=== PATIENT | male | born 1990 | race Two or more races ===

== ENCOUNTER 2016-07-17 11:42 | Emergency (ER) | payer MEDICAID ==
[2016-07-17 12:11] VITALS: BP 116/82; PULSE 64; RESP 18; TEMP 98.6; O2SAT 96
--- NOTE | 2016-07-17 12:31 | UCPHY ---
H & P Time Seen by Provider: 07/17/16 12:11 Patient Type: Established HPI/ROS: This patient has a sore throat over the past 24 hours with subjective fevers. He reports associated odynophagia. He reports the intensity is moderate. He notes no exacerbating or alleviating factors other than the odynophagia. ROS: No high fevers or chills. HEENT: He reports no nasal congestion. No ear pain. Pulmonary: No cough GI: No vomiting skin: No rash. 7 point ROS is otherwise negative. Smoking Status: Current every day smoker Physical Exam: Physical Exam Vital signs are normal. General: No acute distress HEENT: Nose: Clear oropharynx: Mild exudates bilaterally with mild erythema to the tonsils. He has foul smelling breath that reminiscent of strep nose: Clear ears: External canals TMs clear bilaterally. Eyes: Pupils equal and react to light. Extraocular motions are intact. Lungs: Clear to auscultation bilaterally. No respiratory distress. Cardiac: Regular rate and rhythm with no murmur gallop or rub Skin: No rash or pallor. Neuro: Alert with normal mental status Strep versus viral pharyngitis Constitutional: Initial Vital Signs Temperature (C) 37.0 C 07/17/16 11:50 Heart Rate 64 07/17/16 11:50 Respiratory Rate 18 07/17/16 11:50 Blood Pressure 116/82 H 07/17/16 11:50 O2 Sat (%) 96 07/17/16 11:50 O2 Delivery Mode Room Air Allergies/Adverse Reactions: No Known Allergies Allergy (Verified 07/17/16 12:08) Home Medications: Medication Instructions Recorded Abilify 30mg 04/27/14 Prozac 20 MG (RX) 04/27/14 Penicillin V Potassium [Penicillin 500 mg PO BID #20 07/17/16 VK] Medical Decision Making ED Course/Re-evaluation: This patient's rapid strep is negative however his exudates and smell of his breath concerning for potential strep. Will start him on penicillin awaiting the DNA strep test tomorrow. Departure - Departure Disposition: Home, Routine, Self-Care Clinical Impression: Tonsillitis with exudate Instructions: Tonsillitis (ED) Additional Instructions: Diagnosis: Exudative tonsillitis Plan: Penicillin antibiotic Ibuprofen and Tylenol No work tomorrow You can call the clinic tomorrow to check on the 2nd strep test. The # [phone] Referrals: NONE *PRIMARY CARE P,. [Primary Care Provider] - As per Instructions Stand Alone Forms: Work Excuse Prescriptions: Penicillin V Potassium [Penicillin VK] 500 mg PO BID #20 - PQRS PQRS Measurement: NA
== END 2016-07-17 12:37 | disposition home or self-care (01) ==
LOC: CED 11:42
DX: J03.90 Acute tonsillitis, unspecified (principal)
CPT/HCPCS: 87880-PO; 99214-PO; G0463-PO

== ENCOUNTER 2016-12-28 13:06 | Emergency (ER) | payer OTHER ==
--- NOTE | 2016-12-28 13:19 | CPEKG ---
Heart Rate: 66 RR Interval: 909 P-R Interval: 160 QRSD Interval: 100 QT Interval: 384 QTC Interval: 403 P Raritan: 14 QRS Raritan: 54 T Wave Raritan: 15 EKG Severity - NORMAL ECG - EKG Impression: SINUS RHYTHM Electronically Signed By: Alvin Sharma 28-Dec-2016 16:21:56
[2016-12-28 13:23] VITALS: RESP 16; TEMP 98.2; O2SAT 96
--- NOTE | 2016-12-28 13:57 | EDPHY ---
H & P Stated Complaint: chest pain, started wednesday night Time Seen by Provider: 12/28/16 13:38 HPI/ROS: CHIEF COMPLAINT: pain in the left chest HISTORY OF PRESENT ILLNESS: [medically stable 26-year-old male reports awakening from sleep with a sense of heartburn. This all happened some 48 hours ago. He had a quick get out of the tent and vomit. He was out camping and some kind of rodeo show in [place] with his family. Shortly thereafter, he started noting pain in the left chest. It starts in the lower supervisory forehead area and radiates around to the left chest wall. It is somewhat worse when he moves and twists but not continuously. Pain itself is continuous. He has never had pain like this before. He does not use experience reflux He has a negative risk factors for pulmonary embolus as well as no family history for pulmonary embolus. His perc rule score is 0. As to coronary disease his grandmother at a young age on the toilet however we do not know whether that was acute coronary syndrome or sudden . As best see knows his mother and father are well although mother has had problems related to uterine cancer No diabetes or hypertension or high cholesterol. He is a little overweight approaching 29% BMI which he attributes to taking Abilify for last 4 years for underlying psychiatric condition. He did stop this some 4 months ago and does not feel untoward. He does smoke] P: Worse somewhat with movement, able to lay on that side Q: Sharp R: Radiating to left breast S: Moderate T: Almost 36 hours now REVIEW OF SYSTEMS: Constitutional: No fever, no chills. No diaphoresis ENT: No sore throat. Cardiovascular: See above Respiratory: No cough, shortness of breath, or wheezing. Gastrointestinal: No nausea vomiting or diarrhea. No abdominal pain. Genitourinary: No hematuria or frequency. Musculoskeletal: No back pain. Skin: No rashes. Neurological: No headache. 10 point ROS otherwise negative Source: Patient Exam Limitations: No limitations - Medical/Surgical History Hx Asthma: No Hx Chronic Respiratory Disease: No Hx Diabetes: No Hx Cardiac Disease: No Hx Renal Disease: No Hx Cirrhosis: No Hx Alcoholism: No Hx HIV/AIDS: No Hx Splenectomy or Spleen Trauma: No Other PMH: Asthma as a child, bipolar, depression. diverticulitis. PCP none. Tetanus UTD. heart murmur. gerd - Family History Significant Family History: Other (Grandmother of sudden , see above) - Social History Smoking Status: Current every day smoker Alcohol Use: None Drug Use: None - Physical Exam Exam: General Appearance: Alert, no distress. Afebrile. Normal phonation. No respiratory distress. Calm Eyes: Pupils equal and round no pallor or injection. No icterus ENT, Mouth: Mucous membranes moist. Pharynx without erythema or exudate. TM Clear. Neck: No adenopathy. Supple. No JVD. Trachea in midline. Respiratory: There are no retractions, lungs are clear to auscultation. He is tender to the left lateral chest wall. Also worse when he turns to the left. Finally when he attempts to lift his left leg straight leg raising fashion when supine it worsens Cardiovascular: Regular rate and rhythm. No murmur rub Abdomen: Soft and nontender, no masses, bowel sounds normal. Neurological: Ox3. No motor weakness. Sensation intact. Gait nl. Skin: Warm and dry, no rashes. Musculoskeletal: No joint swelling. Extremities: No edema. Homans sign negative. No cords. Psychiatric: Normal affect. There is no agitation] Constitutional: Initial Vital Signs Temperature (C) 36.8 C 12/28/16 13:20 Heart Rate 85 12/28/16 13:20 Respiratory Rate 16 12/28/16 13:20 Blood Pressure 128/66 H 12/28/16 13:20 O2 Sat (%) 96 12/28/16 13:20 O2 Delivery Mode Room Air Allergies/Adverse Reactions: No Known Allergies Allergy (Verified 12/28/16 13:23) Home Medications: Medication Instructions Recorded Abilify 30mg 04/27/14 Prozac 20 MG (RX) 04/27/14 Medical Decision Making - Diagnostics EKG Interpretation: EKG: Normal sinus rhythm. Normal ST-T. No ischemia. Impression normal EKG Imaging Results: Imaging Impressions Chest X-Ray 12/28/16 13:32 Impression: No acute pulmonary disease. Films reviewed by me on the [place] ED Course/Re-evaluation: His initial EKG was negative. Subsequent troponin was negative. His heart score is 1. Perc Score 0. As the predominance of the exam and clinical findings support a rib strain from his violent emesis as he self describes, he will be released with outpatient treatment to consist of [id number] medications Differential Diagnosis: Differential diagnosis includes but is not limited to the following: ACS, myocardial infarction, pneumothorax, pleurisy, pulmonary embolus, aortic dissection, anxiety, muscle strain. - Data Points Laboratory Results: 12/28/16 14:20 Troponin I < 0.012 ng/mL ng/mL (0-0.034) Departure - Departure Disposition: Home, Routine, Self-Care Clinical Impression: Intercostal muscle strain Qualifiers: Encounter type: initial encounter Qualified Code(s): S29.011A - Strain of muscle and tendon of front wall of thorax, initial encounter Condition: Fair Instructions: Muscle Strain (ED) Additional Instructions: Avoid any lifting to rest the chest muscles. That also goes for avoiding fumes , as coughing will make this last longer. If you want to take medications for the pain, Tylenol and Advil works well together in combination: 1300 mg Extended Release Tylenol and 800 mg Advil every 8 hours. For one week only. Referrals: NONE *PRIMARY CARE P,. [Primary Care Provider] - As per Instructions
[2016-12-28 16:12] VITALS: BP 109/53; PULSE 61
== END 2016-12-28 16:11 | disposition home or self-care (01) ==
LOC: CED 13:06
DX: S29.011A Strain of muscle and tendon of front wall of thorax, initial encounter (principal); J45.909 Unspecified asthma, uncomplicated; F17.200 Nicotine dependence, unspecified, uncomplicated; X58.XXXA Exposure to other specified factors, initial encounter
CPT/HCPCS: 71020-PO; 84484-PO

== ENCOUNTER 2017-06-08 15:41 | Emergency (ER) | payer MEDICAID, OTHER ==
[2017-06-08 15:56] VITALS: BP 130/76; PULSE 86; RESP 18; TEMP 99; O2SAT 94
--- NOTE | 2017-06-08 16:41 | EDPHY ---
H & P Stated Complaint: COUGH FOR 1 MONTH, SOB, VOMITING WITH COUGHING Time Seen by Provider: 06/08/17 15:57 HPI/ROS: CHIEF COMPLAINT: Cough with vomiting HISTORY OF PRESENT ILLNESS: This is a 27-year-old male with 2-3 weeks of cough. He has recently developed tussive emesis. He feels mildly short of breath on occasion. He has had nasal congestion. He denies fever. He does not have chest pain. No headache, sore throat, earache. Vaccinations are current. REVIEW OF SYSTEMS: A ten point review of systems was performed and is negative with the exception of the items mentioned in the HPI. He also reports left lower rib fractures that occurred 2 months ago. Past medical history: Schizophrenia Diverticulitis Left rib fractures 2 months ago Social history: Smokes cigarettes on occasion, drinks alcohol socially. General Appearance: Alert. Vital signs reviewed. Eyes: Pupils equal and round, no conjunctival injection, no discharge. Anicteric. ENT, Mouth: Mucous membranes are moist, no oropharyngeal erythema or edema. Neck: No lymphadenopathy, supple. Respiratory: Lungs are clear to auscultation; no wheezes, rales, or rhonchi. Cardiovascular: Regular rate and rhythm; no murmur, rub, or gallop. Gastrointestinal: Abdomen is soft and nontender, no masses or organomegaly, bowel sounds normal. Skin: Warm and dry, no rashes on exposed skin, normal color. Back: Nontender to palpation over the thoracolumbar spine. No CVAT. Extremities: No lower extremity edema, no calf tenderness or swelling. Neurological: Alert and oriented. Moving all four extremities easily and equally. Psychiatric: Normal affect. - Personal History Current Tetanus Diphtheria and Acellular Pertussis (TDAP): Unsure - Medical/Surgical History Hx Asthma: No Hx Chronic Respiratory Disease: No Hx Diabetes: No Hx Cardiac Disease: No Hx Renal Disease: No Hx Cirrhosis: No Hx Alcoholism: No Hx HIV/AIDS: No Hx Splenectomy or Spleen Trauma: No Other PMH: Asthma as a child, bipolar, depression. diverticulitis. PCP none. Tetanus UTD. heart murmur. gerd - Social History Smoking Status: Current every day smoker Constitutional: Initial Vital Signs Temperature (C) 37.2 C 06/08/17 15:52 Heart Rate 86 06/08/17 15:52 Respiratory Rate 18 06/08/17 15:52 Blood Pressure 130/76 H 06/08/17 15:52 O2 Sat (%) 94 06/08/17 15:52 O2 Delivery Mode Room Air Allergies/Adverse Reactions: No Known Allergies Allergy (Verified 06/08/17 15:53) Home Medications: Medication Instructions Recorded Abilify 30mg 04/27/14 Prozac 20 MG (RX) 04/27/14 AZITHROMYCIN [Z-PACK] 250 mg PO DAILY #6 tab 06/08/17 HYDROcodone/HOMATROPINE HYCODA 1 tsp PO Q4-6PRN PRN #120 ml 06/08/17 [Hycodan Syrup (*)] Medical Decision Making ED Course/Re-evaluation: 3 week history of cough tussive emesis is suggestive of pertussis. I am prescribing azithromycin. He understands that this will not improve his symptoms. I am prescribing cough syrup. I do not suspect pneumonia. He has no fever and does not hypoxic. His lungs are clear. Symptoms are not consistent with influenza. I am not recommending chest x-ray at this point in time. Differential Diagnosis: I considered a differential diagnosis of pertussis, pneumonia, influenza, bronchitis, upper respiratory infection. Departure - Departure Disposition: Home, Routine, Self-Care Clinical Impression: Pertussis Condition: Good Instructions: Azithromycin (By mouth), Hydrocodone/Homatropine (By mouth), Pertussis (ED) Additional Instructions: Based upon what your telling me about your cough, I think that you probably have pertussis. I would like you to take the antibiotic that is prescribed for the next 5 days. As we discussed, this probably will not make you feel better but might help you be less contagious. I am also prescribing a cough syrup for you to use as prescribed. I am giving you a couple of names of doctors to contact for primary care. Referrals: Jose Paula DO [Medical Doctor] - As per Instructions [facility] [Outside] - As per Instructions Prescriptions: AZITHROMYCIN [Z-PACK] 250 mg PO DAILY #6 tab HYDROcodone/HOMATROPINE HYCODA [Hycodan Syrup (*)] 1 tsp PO Q4-6PRN PRN #120 ml PRN Reason: Cough, Moderate
== END 2017-06-08 16:49 | disposition home or self-care (01) ==
LOC: CED 15:41
DX: A37.90 Whooping cough, unspecified species without pneumonia (principal); J45.909 Unspecified asthma, uncomplicated; F17.200 Nicotine dependence, unspecified, uncomplicated

== ENCOUNTER 2017-10-27 18:01 | Emergency (ER) | payer MEDICAID ==
[2017-10-27] MEDS ORDERED: PROPARACAINE 0.5% 15 ML OPHT DROP ONE (18:17)
[2017-10-27] MEDS ORDERED: FLUORESCEIN SOD/BENOXINATE HCL 20 DROPS/ML OPHT.BTL ONE (18:17)
[2017-10-27] MEDS ORDERED: FLUORESCEIN SOD/BENOXINATE HCL 20 DROPS/ML OPHT.BTL OP ONE (18:33)
[2017-10-27] MEDS ORDERED: PROPARACAINE 0.5% 15 ML OPHT DROP OP ONE (18:35)
--- NOTE | 2017-10-27 18:54 | EDPHY ---
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 He was using a whole soft putting a hole in a ceiling and had some debris follows left eye. It was probably ceiling tile or drywall but unsure what the debris was. He tried to flush it out. Since that time he states he has had foreign body sensation, eye irritation, cloudy vision. He also states he has had significant discharge in matted eyelashes in the morning ever since this occurred. Patient also complaining of upper respiratory infectious symptoms over the last 3 days including cough, cold, shortness of breath, fever and runny nose. REVIEW OF SYSTEMS: Negative except per HPI. General Appearance: Alert, no distress. Eyes: Pupils pinpoint but reactive and equal. Right eye normal, extraocular motions intact. Left eye with significant injection, discharge, no foreign body identified. Slit-lamp exam shows diffuse fluorescein uptake to the cornea , no Freddie sign, no discrete abrasion or ulcer, no foreign body or rust ring noted. No cell and flare. Bryon-Pen attempted but unable to obtain intra- ocular pressure. Respiratory: No respiratory distress Neurological: Awake, alert, no focal deficits. Skin: Warm and dry, no rashes. Musculoskeletal: Neck is supple nontender. Extremities are symmetrical, full range of motion, no edema. Psychiatric: Patient is oriented X 3, there is no agitation. Medical/surgical history: Schizophrenia, depression, anxiety. 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 Occasional ETOH occasional tobacco also uses THC. Smoking Status: Former smoker Constitutional: Initial Vital Signs Temperature (C) 36.8 C 10/27/17 18:27 Heart Rate 112 H 10/27/17 18:27 Respiratory Rate 20 10/27/17 18:27 Blood Pressure 124/69 H 10/27/17 18:27 O2 Sat (%) 94 10/27/17 18:27 O2 Delivery Mode Room Air Allergies/Adverse Reactions: No Known Allergies Allergy (Verified 10/27/17 18:23) Home Medications: Medication Instructions Recorded Prozac 20 MG (RX) 04/27/14 Adderall 20 mg (*) 10/27/17 Xanax 05/16/18 Medical Decision Making ED Course/Re-evaluation: Discussed with Dr. Gant at 6:50 p.m.. Plan is for patient to stop his Visine and other eyedrops and to start using a preservative-free artificial tears. No indication for topical antibiotics at this time. Patient will follow up with Dr. Gant or Wednesday if not improving. Differential Diagnosis: Differential diagnosis includes but is not limited to corneal abrasion, corneal ulcer, dendritic lesion, iritis, glaucoma, conjunctivitis, upper respiratory infection. After evaluation no signs of corneal abrasion or discrete lesion however fluorescein uptake on the cornea is diffuse consistent with inflammatory process. No foreign body identified. Low suspicion for glaucoma. Plan as discussed with Dr. Gant include switching to preservative-free artificial tears. This was discussed in detail with the patient including follow-up and indications to return to the emergency department. Likely also mild viral upper respiratory infection without evidence of bacterial infection or indication for systemic antibiotics at this time. Stable for discharge. - Data Points Medications Given: Discontinued Medications Fluorescein Sodium/Benoxinate HCl (Flurox) 2 drops OP EDNOW ONE Stop: 10/27/17 18:34 Last Admin: 10/27/17 18:39 Dose: 2 drop Proparacaine HCl (Alcaine 0.5%) 1 drops OP EDNOW ONE Stop: 10/27/17 18:36 Last Admin: 10/27/17 18:39 Dose: 1 drop Departure - Departure Clinical Impression: Corneal inflammation, left, Acute bronchitis Conjunctivitis Qualifiers: Conjunctivitis type: other mucopurulent Laterality: left Qualified Code(s): H10.022 - Other mucopurulent conjunctivitis, left eye Condition: Good Instructions: Conjunctivitis (ED) Additional Instructions: Stop using the eyedrops like Visine or other [id number]-[id number] drops for redness. Start using artificial tears, preservative free. Important that you get the preservative-free artificial tears, start using these today. If your eye problem is not improving tomorrow you should call the soft iron inspector to make an appointment for either or Wednesday. If things get worse he should call the soft iron inspector right away. Referrals: NONE *PRIMARY CARE P,. [Primary Care Provider] - As per Instructions Hector Gant MD [Medical Doctor] - As per Instructions
[2017-10-27 19:20] VITALS: BP 120/60
== END 2017-10-27 19:19 | disposition home or self-care (01) ==
LOC: CED 18:01
DX: H10.022 Other mucopurulent conjunctivitis, left eye (principal); J20.9 Acute bronchitis, unspecified; H16.9 Unspecified keratitis; Z87.891 Personal history of nicotine dependence

== ENCOUNTER 2018-08-24 03:32 | Emergency (ER) | payer MEDICAID ==
--- NOTE | 2018-08-24 04:22 | EDPHY ---
H & P Stated Complaint: slip fall lac to l palm Time Seen by Provider: 08/24/18 04:22 HPI/ROS: HPI CHIEF COMPLAINT: Left hand laceration. HISTORY OF PRESENT ILLNESS: This patient is a 28-year-old male, states he is up -to-date on tetanus, he is right-hand dominant, he states he was walking home from the grocery store this evening, approximately 2 hr ago and slipped and fell on his outstretched left hand. He sustained a palmar laceration is v- shaped 3 cm x 4 cm thenar eminence region of the left hand between the thumb and index finger. He states he is able to move everything appropriately. Denies numbness or tingling. States this happened 2 hr ago. He states he slipped and fell on a rock. Put his hand out sustained this laceration. Denies any other areas of trauma. Past Medical History: Denies medical history Past Surgical History: Denies surgical history Social History: Denies drugs alcohol tobacco. Family History: Noncontributory ROS REVIEW OF SYSTEMS: 10 Systems were reviewed and negative with the exception of the elements mentioned in the history of present illness. Exam Constitutional triage nursing summary reviewed, vital signs reviewed, awake/ alert. Eyes normal conjunctivae and sclera, EOMI, PERRLA. HENT normal inspection, atraumatic, moist mucus membranes, no epistaxis, neck supple/ no meningismus, no raccoon eyes. Respiratory clear to auscultation bilaterally, normal breath sounds, no respiratory distress, no wheezing. Cardiovascular rate normal, regular rhythm, no murmur, no edema, distal pulses normal. Gastrointestinal soft, non-tender, no rebound, no guarding, normal bowel sounds, no distension, no pulsatile mass. Genitourinary no CVA tenderness. Musculoskeletal no midline vertebral tenderness, full range of motion, no calf swelling, no tenderness of extremities, no meningismus, good pulses, neurovascularly intact. Skin left hand palmar aspect thenar eminence and space between the 2nd and thumb webspace is a laceration v-shaped. 3 cm x 4 cm. His left hand is neurovascular intact with good distal pulse, good cap refill, full range of motion. No obvious tendon injury in. No gross foreign bodies visualized. pink, warm, & dry, no rash, skin atraumatic. Neurologic awake, alert and oriented x 3, AAOx3, moves all 4 extremities equally, motor intact, sensory intact, CN II-XII intact, normal cerebellar, normal vision, normal speech. Psychiatric normal mood/affect. Heme/Lymph/Immune no lymphadenopathy. Differential Diagnosis: Includes but is not limited to in a particular order left hand laceration, soft tissue injury, fracture, foreign body, tendon laceration Medical Decision Making: Plan for this patient will copiously irrigated soak his left hand, will clean his wound out copiously, x-ray left hand foreign bodies in fracture, patient's tetanus shot is up-to-date. Will need sutures. Re-evaluation: X-ray of the left hand reviewed negative for acute foreign body or fracture. Laceration Repair Procedure: Verbal Consent was obtained, Under sterile conditions, The patient had lidocaine without epinephrine used approximately 6ccs to local anesthetize the V shaped 3Cm x 4CM Laceration. The wound was copiously irrigated with sterile fluid, the wound was explored for foreign bodies there were none visualized, the wound was explored with a sterile glove to the base. There are no deep structures involved, including no arterial injury. FIVE 5.O PROLENE interrupted Sutures were placed in this patient's laceration. He had good close approximation of the wound edges. He Tolerated this well. Patient has been placed in a luminal form splint to help with comfort, immobilization, protection. Patient's tetanus shot is up-to-date. Patient's left hand is neurovascular intact with full range of motion of the index finger and thumb. Good sensation, good cap refill, no hand artery injury visualized no tendon injury visualized. And no foreign bodies visualized after copious exploration and cleaning. Patient started on Keflex. Patient understands watch closely for infection Return precautions discussed with the patient additionally understands to have sutures removed in 12-14 days. Source: Patient - Personal History Current Tetanus/Diphtheria Vaccine: Yes Current Tetanus Diphtheria and Acellular Pertussis (TDAP): Yes - Medical/Surgical History Hx Asthma: Yes Hx Chronic Respiratory Disease: No Hx Diabetes: No Hx Cardiac Disease: No Hx Renal Disease: No Hx Cirrhosis: No Hx Alcoholism: No Hx HIV/AIDS: No Hx Splenectomy or Spleen Trauma: No Other PMH: Asthma as a child, bipolar, depression,schizophrenia. diverticulitis , liver failure, heart murmur. gerd - Social History Smoking Status: Former smoker Constitutional: Initial Vital Signs Temperature (C) 36.7 C 08/24/18 03:40 Heart Rate 109 H 08/24/18 03:40 Respiratory Rate 18 08/24/18 03:40 Blood Pressure 106/80 08/24/18 03:40 O2 Sat (%) 95 08/24/18 03:40 O2 Delivery Mode Room Air Allergies/Adverse Reactions: No Known Allergies Allergy (Verified 10/27/17 18:23) Home Medications: Medication Instructions Recorded Cephalexin [Keflex] 500 mg PO Q6H #28 cap 08/24/18 Departure - Departure Disposition: Home, Routine, Self-Care Clinical Impression: Laceration Condition: Good Instructions: Care For Your Stitches (ED), Laceration (ED) Additional Instructions: 1. Your sutures need to be removed in 12-14 days. 2. Please keepyour hands clean, dry and protected. Watch for signs of infection. This includes redness, drainage, pus, worsening swelling and worsening pain. 3. Keep her hands clean and protected. 4. Antibiotics as prescribed Referrals: NONE *PRIMARY CARE P,. [Primary Care Provider] - As per Instructions Froy Piedra MD [Medical Doctor] - As per Instructions Prescriptions: Cephalexin [Keflex] 500 mg PO Q6H #28 cap
[2018-08-24] MEDS ORDERED: CEPHALEXIN 500MG PREPACK#4 BTL TAKEHOME ONE (04:54)
[2018-08-24] MEDS ORDERED: CEPHALEXIN 500 MG CAP PO ONE (04:54)
[2018-08-24 05:36] VITALS: BP 134/78
== END 2018-08-24 05:36 | disposition home or self-care (01) ==
PROC: 0HQGXZZ Repair Left Hand Skin, External Approach (ICD-10-PCS; principal; 2018-08-24)
DX: S61.412A Laceration without foreign body of left hand, initial encounter (principal); W19.XXXA Unspecified fall, initial encounter; Y92.89 Other specified places as the place of occurrence of the external cause; Y93.01 Activity, walking, marching and hiking; Y99.9 Unspecified external cause status; Z87.891 Personal history of nicotine dependence
CPT/HCPCS: L3925